=== PATIENT | female | born 1955 | race Caucasian/White ===

== ENCOUNTER 2016-08-24 16:55 | Emergency (ER) | payer BC, OTHER ==
[~2016-08-24] VITALS: Ht 170.2 cm; Wt 119.3 kg
[2016-08-24 18:02] VITALS: BP 178/91
== END 2016-08-24 18:02 | disposition home or self-care (01) ==
LOC: ER 16:55
DX: S16.1XXA Strain of muscle, fascia and tendon at neck level, initial encounter (principal); V43.52XA Car driver injured in collision with other type car in traffic accident, initial encounter; Y93.89 Activity, other specified; Y92.89 Other specified places as the place of occurrence of the external cause; Y99.8 Other external cause status